=== PATIENT | male | born 1940 | race Caucasian/White ===

== ENCOUNTER 2019-10-12 00:46 | Emergency (ER) | payer MEDICARE ==
--- NOTE | 2019-10-12 01:21 | EDM.PDOC ---
ED HPI GENERAL MEDICAL PROBLEM - General Chief Complaint: Genitourinary Problem Stated Complaint: CATHETER ISSUES Time Seen by Provider: 10/12/19 01:00 Source of Information: Reports: Patient History Limitations: Reports: No Limitations - History of Present Illness INITIAL COMMENTS - FREE TEXT/NARRATIVE: 79-year-old male with an indwelling catheter which was replaced Monday, developed likely obstruction with some drainage around the catheter from the penis and a pressure in his lower abdomen. No hematuria, no fevers or chills. Onset: Gradual (Symptoms over the past several hours) - Related Data Allergies Allergy/AdvReac Type Severity Reaction Status Date / Time No Known Allergies Allergy Verified 10/12/19 01:04 Home Meds: Home Meds Aspirin [Natalie Chewable Aspirin] 81 mg PO DAILY 12/12/13 [History] atorvaSTATin [Lipitor] 80 mg PO BEDTIME 08/19/14 [History] Acetaminophen [Tylenol Extra Strength] 1 tab PO QID PRN 12/20/15 [History] Nitroglycerin [IJP: Nitroglycerin] 1 tab SL ASDIRECTED 12/20/15 [History] Polyethylene Glycol 3350 [MiraLAX] 1 dose PO DAILY 12/20/15 [History] Sennosides/Docusate Sodium [Senna-S] 1 tab PO BEDTIME 12/20/15 [History] Metoprolol Succinate [Toprol Xl] 25 mg PO DAILY 10/12/19 [History] Mirtazapine 15 mg PO BEDTIME 10/12/19 [History] Oxybutynin Chloride [Oxybutynin Chloride ER] 10 mg PO DAILY 10/12/19 [History] Past Medical History HEENT History: Reports: Cataract, Impaired Vision Cardiovascular History: Reports: CAD, Heart Failure, High Cholesterol, Hypertension, [place] Other Cardiovascular History: open heart surgery 7 years ago. Ischemic heart disease, hyperlipidemia Gastrointestinal History: Reports: Chronic Constipation Genitourinary History: Reports: Renal Calculus, Urinary Incontinence, Other ( See Below) Other Genitourinary History: decreased urine stream Musculoskeletal History: Reports: Other (See Below) Other Musculoskeletal History: neuropathy Neurological History: Reports: Neuropathy, Peripheral Psychiatric History: Reports: Anxiety - Infectious Disease History Infectious Disease History: Reports: Chicken Pox - Past Surgical History HEENT Surgical History: Reports: Cataract Surgery, Tonsillectomy Cardiovascular Surgical History: Reports: Coronary Artery Bypass Male Surgical History: Reports: Kidney Stone Extraction, Lithotripsy (ESWL), Renal Calculus Social & Family History - Caffeine Use Caffeine Use: Reports: Coffee ED ROS GENERAL - Review of Systems Review Of Systems: See Below Constitutional: Denies: Fever, Chills Respiratory: Denies: Shortness of Breath Cardiovascular: Denies: Chest Pain GI/Abdominal: Reports: Abdominal Pain. Denies: Nausea, Vomiting : Reports: Urinary Retention Musculoskeletal: Reports: Other (Struggling with pain around his right large toenail with mild inflammation) ED EXAM, RENAL/ - Physical Exam Exam: See Below Exam Limited By: No Limitations General Appearance: Alert, Anxious, Mild Distress Respiratory/Chest: No Respiratory Distress GI/Abdominal: Soft, Tender (Discomfort over the lower abdomen, likely bladder distention) Skin Exam: Other (Some mild inflammation around the medial aspect of the great toenail from an in grown toenail, no significant erythema or warmth) Course - Vital Signs Last Recorded V/S: Last Vital Signs Temp 97.6 F 10/12/19 01:32 Pulse 86 10/12/19 01:32 Resp 14 10/12/19 01:32 BP 164/77 H 10/12/19 01:32 Pulse Ox 98 10/12/19 01:32 - Re-Assessments/Exams Free Text/Narrative Re-Assessment/Exam: 10/12/19 01:19 The catheter was irrigated and a fairly significant sized chunk of particulate matter was dislodged and the catheter started functioning. Almost 500 cc of clear urine was expelled. His symptoms resolved. Departure - Departure Time of Disposition: 01:43 Disposition: Home, Self-Care 01 Clinical Impression: Obstructed Medeiros catheter Qualifiers: Encounter type: initial encounter Qualified Code(s): T83.091A - Other mechanical complication of indwelling urethral catheter, initial encounter - Discharge Information Instructions: Indwelling Urinary Catheter Care, Adult Referrals: Klarissa Yadav MD [Primary Care Provider] - Forms: ED Department Discharge Care Plan Goals: Continue using catheter as normal, return anytime if problems redevelop. Recheck if your toe is worsening. Sepsis Event Note - Focused Exam Vital Signs: Vital Signs Temp Pulse Resp BP Pulse Ox 10/12/19 01:32 97.6 F 86 14 164/77 H 98 Date Exam was Performed: 10/12/19 Time Exam was Performed: 02:27
[2019-10-12 01:35] VITALS: BP 164/77; PULSE 86
== END 2019-10-12 01:45 | disposition home or self-care (01) ==
LOC: JP.ED 00:46
DX: T83.098A Other mechanical complication of other urinary catheter, initial encounter (principal); I11.0 Hypertensive heart disease with heart failure; I50.9 Heart failure, unspecified; I25.10 Atherosclerotic heart disease of native coronary artery without angina pectoris; E78.5 Hyperlipidemia, unspecified; F41.9 Anxiety disorder, unspecified; I25.2 Old myocardial infarction; Z79.82 Long term (current) use of aspirin; Z79.899 Other long term (current) drug therapy; Z87.442 Personal history of urinary calculi
CPT/HCPCS: 51798; 99283; 99283-25

== ENCOUNTER 2019-10-22 00:15 | Emergency (ER) | payer MEDICARE ==
[2019-10-22 00:30] VITALS: BP 143/79; PULSE 78
--- NOTE | 2019-10-22 00:45 | EDM.PDOC ---
ED HPI GENERAL MEDICAL PROBLEM - General Chief Complaint: Genitourinary Problem Stated Complaint: CATH ISSUES Time Seen by Provider: 10/22/19 00:30 Source of Information: Reports: Patient, Family History Limitations: Reports: No Limitations - History of Present Illness INITIAL COMMENTS - FREE TEXT/NARRATIVE: 79-year-old male with an indwelling catheter, is having problems with obstruction of the catheter in his urine leg is turning a purplish color. He has no pain, fever or dysuria. Denies back pain. No fevers or chills. Onset: Unknown/Unsure Location: Reports: Abdomen (Some pressure and fullness in the lower abdomen) - Related Data Allergies Allergy/AdvReac Type Severity Reaction Status Date / Time No Known Allergies Allergy Verified 10/22/19 00:19 Home Meds: Home Meds Aspirin [Natalie Chewable Aspirin] 81 mg PO DAILY 12/12/13 [History] atorvaSTATin [Lipitor] 80 mg PO BEDTIME 08/19/14 [History] Acetaminophen [Tylenol Extra Strength] 1 tab PO QID PRN 12/20/15 [History] Nitroglycerin [IJP: Nitroglycerin] 1 tab SL ASDIRECTED 12/20/15 [History] Polyethylene Glycol 3350 [MiraLAX] 1 dose PO DAILY 12/20/15 [History] Sennosides/Docusate Sodium [Senna-S] 1 tab PO BEDTIME 12/20/15 [History] Metoprolol Succinate [Toprol Xl] 25 mg PO DAILY 10/12/19 [History] Mirtazapine 15 mg PO BEDTIME 10/12/19 [History] Oxybutynin Chloride [Oxybutynin Chloride ER] 10 mg PO DAILY 10/12/19 [History] Past Medical History HEENT History: Reports: Cataract, Impaired Vision Cardiovascular History: Reports: CAD, Heart Failure, High Cholesterol, Hypertension, [place] Other Cardiovascular History: open heart surgery 7 years ago. Ischemic heart disease, hyperlipidemia Gastrointestinal History: Reports: Chronic Constipation Genitourinary History: Reports: Renal Calculus, Urinary Incontinence, Other ( See Below) Other Genitourinary History: decreased urine stream, chronic urinary catheter Musculoskeletal History: Reports: Other (See Below) Other Musculoskeletal History: neuropathy Neurological History: Reports: Neuropathy, Peripheral Psychiatric History: Reports: Anxiety - Infectious Disease History Infectious Disease History: Reports: Chicken Pox - Past Surgical History HEENT Surgical History: Reports: Cataract Surgery, Tonsillectomy Cardiovascular Surgical History: Reports: Coronary Artery Bypass Male Surgical History: Reports: Kidney Stone Extraction, Lithotripsy (ESWL), Renal Calculus Social & Family History - Tobacco Use Smoking Status *Q: Never Smoker - Caffeine Use Caffeine Use: Reports: Coffee - Recreational Drug Use Recreational Drug Use: No ED ROS GENERAL - Review of Systems Review Of Systems: See Below Constitutional: Denies: Fever, Chills Respiratory: Reports: No Symptoms GI/Abdominal: Reports: Abdominal Pain : Reports: Urinary Retention Neurological: Reports: No Symptoms Psychiatric: Reports: No Symptoms ED EXAM, RENAL/ - Physical Exam Exam: See Below Exam Limited By: No Limitations General Appearance: Alert, No Apparent Distress (Looks uncomfortable but not distressed initially) Respiratory/Chest: No Respiratory Distress, Lungs Clear Cardiovascular: Regular Rate, Rhythm GI/Abdominal: Other (Some fullness and soreness over the suprapubic area prior to drainage of the bladder) Neurological: Alert, Oriented Psychiatric: Anxious Skin Exam: Warm, Dry Course - Vital Signs Last Recorded V/S: Last Vital Signs Temp 97.8 F 10/22/19 00:30 Pulse 78 10/22/19 00:30 Resp 16 10/22/19 00:30 BP 143/79 H 10/22/19 00:30 Pulse Ox 98 10/22/19 00:30 - Orders/Labs/Meds Orders: Active Orders 24 hr Category Date Time Status CULTURE URINE [RM] Stat Lab 10/22/19 00:36 Received Labs: Laboratory Tests 10/22/19 Range/Units 00:36 Urine Color Yellow (YELLOW) Urine Appearance Cloudy A (CLEAR) Urine pH 7.0 (5.0-8.0) Ur Specific [place] 1.020 (1.008-1.030) Urine Protein Negative (NEGATIVE) mg/dL Urine Glucose (UA) Negative (NEGATIVE) mg/dL Urine Ketones Negative (NEGATIVE) mg/dL Urine Occult Blood Large H (NEGATIVE) Urine Nitrite Positive H (NEGATIVE) Urine Bilirubin Negative (NEGATIVE) Urine Urobilinogen 0.2 (0.2-1.0) EU/dL Ur Leukocyte Esterase Moderate H (NEGATIVE) Urine RBC 20-30 H (0-5) Urine WBC 5-10 H (0-5) Ur Epithelial Cells Rare Amorphous Sediment Many Urine Bacteria Many Urine Mucus Not seen - Re-Assessments/Exams Free Text/Narrative Re-Assessment/Exam: 10/22/19 01:03 The urinary catheter was flushed and a large plug of purulent material was expelled and the urine was very odorous and full of sediment. A UA was run which was positive for UTI. 10/22/19 01:04 Urine is nitrate positive, many bacteria and significant WBCs. A culture was initiated. Patient will be placed on Macrodantin twice daily for 7 days pending culture. Departure - Departure Time of Disposition: :21 Disposition: Home, Self-Care 01 Clinical Impression: UTI (urinary tract infection) Qualifiers: Urinary tract infection type: catheter-associated UTI Indwelling urinary catheter type: indwelling urethral catheter Encounter type: initial encounter Qualified Code(s): T83.511A - Infection and inflammatory reaction due to indwelling urethral catheter, initial encounter Malfunction of Medeiros catheter Qualifiers: Encounter type: initial encounter Qualified Code(s): T83.011A - Breakdown ( mechanical) of indwelling urethral catheter, initial encounter - Discharge Information Instructions: Urinary Tract Infection, Adult Referrals: PCP,None [Primary Care Provider] - Forms: ED Department Discharge Care Plan Goals: Take antibiotic twice daily for 7 days and return anytime if you redevelop symptoms or have trouble with the catheter. You will be contacted if your urine culture shows you need another antibiotic. Return anytime if worsening despite treatment. Sepsis Event Note - Evaluation Sepsis Screening Result: No Definite Risk - Focused Exam Vital Signs: Vital Signs Temp Pulse Resp BP Pulse Ox 10/22/19 00:30 97.8 F 78 16 143/79 H 98 10/22/19 00:28 97.8 F 78 16 143/79 H 98 Date Exam was Performed: 10/22/19 Time Exam was Performed: 01:58 - My Orders Last 24 Hours: My Active Orders 10/22/19 00:36 CULTURE URINE [RM] Stat - Assessment/Plan Last 24 Hours: My Active Orders 10/22/19 00:36 CULTURE URINE [RM] Stat
== END 2019-10-22 01:21 | disposition home or self-care (01) ==
LOC: JP.ED 00:15
DX: T83.518A Infection and inflammatory reaction due to other urinary catheter, initial encounter (principal); T83.9XXA Unspecified complication of genitourinary prosthetic device, implant and graft, initial encounter; I25.10 Atherosclerotic heart disease of native coronary artery without angina pectoris; I11.0 Hypertensive heart disease with heart failure; I50.9 Heart failure, unspecified; I25.2 Old myocardial infarction; G62.9 Polyneuropathy, unspecified; F41.9 Anxiety disorder, unspecified; Z79.82 Long term (current) use of aspirin; Z79.899 Other long term (current) drug therapy
CPT/HCPCS: 81001; 87086; 99283

== ENCOUNTER 2019-12-01 18:42 | Emergency (ER) | payer MEDICARE ==
[2019-12-01] MEDS ORDERED: Lidocaine 2% Jelly 10 ML Urojet MUCMEM ONE (18:58)
[2019-12-01 19:01] VITALS: BP 162/71; PULSE 70
--- NOTE | 2019-12-01 19:31 | EDM.PDOC ---
ED HPI GENERAL MEDICAL PROBLEM - General Chief Complaint: Genitourinary Problem Stated Complaint: CATHETER/MEDICAL Time Seen by Provider: 12/01/19 19:20 Source of Information: Reports: Patient, Family () History Limitations: Reports: Other (hard of hearing) - History of Present Illness INITIAL COMMENTS - FREE TEXT/NARRATIVE: 79 year old male with chronic indwelling urinary catheter which was scheduled to be changed on Monday but supplies needed. Home Health was planning to change the catheter early this week, including leg and bed bag change. Patient had abrupt onset of urinary retention due to plugged catheter around 2pm this afternoon which caused lower abdominal discomfort and pressure with leakage around catheter. Patient denies any systemic symptoms that would be concerning for UTI. Patient's leg bag is a purple color indicating bacteria or blood present. Urine appears bloody and strong odor noted. - Related Data Allergies Allergy/AdvReac Type Severity Reaction Status Date / Time No Known Allergies Allergy Verified 12/01/19 19:31 Home Meds: Home Meds Aspirin [Ntaalie Chewable Aspirin] 81 mg PO DAILY 12/12/13 [History] atorvaSTATin [Lipitor] 80 mg PO BEDTIME 08/19/14 [History] Acetaminophen [Tylenol Extra Strength] 1 tab PO QID PRN 12/20/15 [History] Nitroglycerin [IJP: Nitroglycerin] 1 tab SL ASDIRECTED PRN 12/20/15 [History] Polyethylene Glycol 3350 [MiraLAX] 1 dose PO DAILY 12/20/15 [History] Sennosides/Docusate Sodium [Senna-S] 1 tab PO BEDTIME 12/20/15 [History] Metoprolol Succinate [Toprol Xl] 25 mg PO DAILY 10/12/19 [History] Mirtazapine 15 mg PO BEDTIME 10/12/19 [History] Oxybutynin Chloride [Oxybutynin Chloride ER] 10 mg PO DAILY 10/12/19 [History] Past Medical History HEENT History: Reports: Cataract, Impaired Vision Cardiovascular History: Reports: CAD, Heart Failure, High Cholesterol, Hypertension, [place] Other Cardiovascular History: open heart surgery 7 years ago. Ischemic heart disease, hyperlipidemia Gastrointestinal History: Reports: Chronic Constipation Genitourinary History: Reports: Renal Calculus, Urinary Incontinence, Other (See Below) Other Genitourinary History: decreased urine stream, chronic urinary catheter Musculoskeletal History: Reports: Other (See Below) Other Musculoskeletal History: neuropathy Neurological History: Reports: Neuropathy, Peripheral Psychiatric History: Reports: Anxiety - Infectious Disease History Infectious Disease History: Reports: Chicken Pox - Past Surgical History HEENT Surgical History: Reports: Cataract Surgery, Tonsillectomy Cardiovascular Surgical History: Reports: Coronary Artery Bypass Male Surgical History: Reports: Kidney Stone Extraction, Lithotripsy (ESWL), Renal Calculus Social & Family History - Caffeine Use Caffeine Use: Reports: Coffee ED ROS GENERAL - Review of Systems Review Of Systems: Comprehensive ROS is negative, except as noted in HPI. ED EXAM, RENAL/ - Physical Exam Exam: See Below Exam Limited By: Other (Hard of Hearing) General Appearance: Alert, WD/WN, Mild Distress (suprapubic/bladder discomfort) Eye Exam: Bilateral Eye: EOMI, Normal Inspection Ears: Normal External Exam, Hearing Loss Nose: Normal Inspection Throat/Mouth: Normal Inspection, Normal Voice, No Airway Compromise Head: Atraumatic Neck: Normal Inspection Respiratory/Chest: No Respiratory Distress Cardiovascular: Normal Peripheral Pulses, Other (good color) GI/Abdominal: Soft, Distended (slightly over bladder), Tender (suprapubic discomfort noted). No: Guarding, Rigid (Male) Exam: Suprapubic Fullness, Testicular Mass, Testicular Tenderness (L), Other (retracted phalus noted with blood urine after removal of current urinary catheter). No: Circumcised, Rash, Scrotal Swelling Rectal (Males) Exam: Deferred Neurological: Alert, Oriented, CN II-XII Intact, Normal Cognition. No: Normal Gait (4 point cane use) Psychiatric: Normal Affect, Normal Mood Skin Exam: Warm, Dry, Intact, Normal Color, No Rash ED PROCEDURES - Additional/Other Procedure(s) Procedure(s) (Free Text): Current urinary catheter removed by nursing staff and replace with urojet for discomfort. Patient tolerated well. Please see nursing note for catheter type and size placed. New urinary catheter draining yellow slightly concentrated urine with minimal sediment noted. Course - Vital Signs Last Recorded V/S: Last Vital Signs Temp 35.0 C L 12/01/19 19:33 Pulse 70 12/01/19 19:33 Resp 16 12/01/19 19:33 BP 162/71 H 12/01/19 19:33 Pulse Ox 97 12/01/19 19:33 - Orders/Labs/Meds Orders: Active Orders 24 hr Category Date Time Status Bladder Scan [RC] ASDIRECTED Care 12/01/19 18:58 Active Insert Urinary Catheter [OM.PC] Q24H Care 12/01/19 19:00 Ordered Remove Urinary Catheter [Urinary Catheter Removal] [RC] Care 12/01/19 18:59 Active PER UNIT ROUTINE Urinary Catheter Assessment [RC] ASDIRECTED Care 12/01/19 18:59 Active Meds: Medications Discontinued Medications Generic Name Dose Route Start Last Admin Trade Name [place] PRN Reason Stop Dose Admin Lidocaine HCl 10 ml 12/01/19 18:58 Xylocaine 2% Jelly MUCMEM 12/01/19 18:59 ONETIME ONE Departure - Departure Time of Disposition: 19:45 Disposition: Home, Self-Care 01 Clinical Impression: Urinary catheter dysfunction, Urinary catheter (Medeiros) change required, Colonization status - Discharge Information Instructions: Indwelling Urinary Catheter Care, Adult Referrals: Klarissa Yadav MD [Primary Care Provider] - Forms: ED Department Discharge Sepsis Event Note (ED) - Focused Exam Vital Signs: Vital Signs Temp Pulse Resp BP Pulse Ox 12/01/19 19:33 35.0 C L 70 16 162/71 H 97 12/01/19 19:00 35.0 C L 70 16 162/71 H 97 - My Orders Last 24 Hours: My Active Orders 12/01/19 18:58 Bladder Scan [RC] ASDIRECTED 12/01/19 18:59 Remove Urinary Catheter [Urinary Catheter Removal] [RC] PER UNIT ROUTINE Urinary Catheter Assessment [RC] ASDIRECTED 12/01/19 19:00 Insert Urinary Catheter [OM.PC] Q24H - Assessment/Plan Last 24 Hours: My Active Orders 12/01/19 18:58 Bladder Scan [RC] ASDIRECTED 12/01/19 18:59 Remove Urinary Catheter [Urinary Catheter Removal] [RC] PER UNIT ROUTINE Urinary Catheter Assessment [RC] ASDIRECTED 12/01/19 19:00 Insert Urinary Catheter [OM.PC] Q24H
== END 2019-12-01 19:58 | disposition home or self-care (01) ==
LOC: JP.ED 18:42
DX: T83.89XA Other specified complication of genitourinary prosthetic devices, implants and grafts, initial encounter (principal); I11.0 Hypertensive heart disease with heart failure; I50.9 Heart failure, unspecified; I25.10 Atherosclerotic heart disease of native coronary artery without angina pectoris; I25.2 Old myocardial infarction; E78.00 Pure hypercholesterolemia, unspecified; F41.9 Anxiety disorder, unspecified; Z79.82 Long term (current) use of aspirin; Z79.899 Other long term (current) drug therapy
CPT/HCPCS: 51702; 99283

== ENCOUNTER 2019-12-18 20:19 | Emergency (ER) | payer MEDICARE ==
[2019-12-18 20:34] VITALS: BP 144/79; PULSE 58
--- NOTE | 2019-12-18 20:51 | EDM.PDOC ---
ED HPI GENERAL MEDICAL PROBLEM - General Chief Complaint: Genitourinary Problem Stated Complaint: CATHETER PLUG Time Seen by Provider: 12/18/19 20:45 Source of Information: Reports: Patient, Family History Limitations: Reports: No Limitations - History of Present Illness INITIAL COMMENTS - FREE TEXT/NARRATIVE: 79-year-old male with a chronic indwelling Medeiros catheter, feels it is plugged as he is leaking urine around the catheter and the bag is not filling. He is not distended and not retaining urine. They have had to flush the catheter several times over the past week and it keeps getting plugged. He does not have hematuria or blood clots. Onset: Unknown/Unsure Associated Symptoms: Reports: No Other Symptoms - Related Data Allergies Allergy/AdvReac Type Severity Reaction Status Date / Time No Known Allergies Allergy Verified 12/18/19 20:34 Home Meds: Home Meds Aspirin [Natalie Chewable Aspirin] 81 mg PO DAILY 12/12/13 [History] atorvaSTATin [Lipitor] 80 mg PO BEDTIME 08/19/14 [History] Acetaminophen [Tylenol Extra Strength] 1 tab PO QID PRN 12/20/15 [History] Nitroglycerin [IJP: Nitroglycerin] 1 tab SL ASDIRECTED PRN 12/20/15 [History] Polyethylene Glycol 3350 [MiraLAX] 1 dose PO DAILY 12/20/15 [History] Sennosides/Docusate Sodium [Senna-S] 1 tab PO BEDTIME 12/20/15 [History] Metoprolol Succinate [Toprol Xl] 25 mg PO DAILY 10/12/19 [History] Mirtazapine 15 mg PO BEDTIME 10/12/19 [History] Oxybutynin Chloride [Oxybutynin Chloride ER] 10 mg PO DAILY 10/12/19 [History] Past Medical History HEENT History: Reports: Cataract, Impaired Vision Cardiovascular History: Reports: CAD, Heart Failure, High Cholesterol, Hypertension, [place] Other Cardiovascular History: open heart surgery 7 years ago. Ischemic heart disease, hyperlipidemia Gastrointestinal History: Reports: Chronic Constipation Genitourinary History: Reports: Renal Calculus, Urinary Incontinence, Other (See Below) Other Genitourinary History: decreased urine stream, chronic urinary catheter Musculoskeletal History: Reports: Other (See Below) Other Musculoskeletal History: neuropathy Neurological History: Reports: Neuropathy, Peripheral Psychiatric History: Reports: Anxiety - Infectious Disease History Infectious Disease History: Reports: Chicken Pox - Past Surgical History HEENT Surgical History: Reports: Cataract Surgery, Tonsillectomy Cardiovascular Surgical History: Reports: Coronary Artery Bypass Male Surgical History: Reports: Kidney Stone Extraction, Lithotripsy (ESWL), Renal Calculus Social & Family History - Family History Family Medical History: Noncontributory - Tobacco Use Smoking Status *Q: Never Smoker - Caffeine Use Caffeine Use: Reports: None - Recreational Drug Use Recreational Drug Use: No ED ROS GENERAL - Review of Systems Review Of Systems: See Below Constitutional: Denies: Fever, Chills Respiratory: Denies: Shortness of Breath Cardiovascular: Denies: Chest Pain GI/Abdominal: Denies: Abdominal Pain Psychiatric: Reports: No Symptoms ED EXAM, RENAL/ - Physical Exam Exam: See Below General Appearance: Alert, No Apparent Distress Respiratory/Chest: No Respiratory Distress GI/Abdominal: Soft, Non-Tender, Other (No significant bladder distention or suprapubic discomfort) Course - Vital Signs Last Recorded V/S: Last Vital Signs Temp 96.9 F 12/18/19 20:39 Pulse 58 L 12/18/19 20:39 Resp 16 12/18/19 20:39 BP 144/79 H 12/18/19 20:39 Pulse Ox 94 L 12/18/19 20:39 - Re-Assessments/Exams Free Text/Narrative Re-Assessment/Exam: 12/18/19 21:23 There was an attempt to unobstruct the old catheter but it was impossible, a new catheter, 16 [place] was replaced without problems. It flowed freely without obstruction. Patient can return or call his primary if he has problems with his new catheter. Departure - Departure Time of Disposition: 21:42 Disposition: Home, Self-Care 01 Clinical Impression: Malfunction of Medeiros catheter - Discharge Information Instructions: Indwelling Urinary Catheter Care, Adult Referrals: Klarissa Yadav MD [Primary Care Provider] - Forms: ED Department Discharge Care Plan Goals: Recheck anytime if problems with your new catheter. Sepsis Event Note (ED) - Evaluation Sepsis Screening Result: No Definite Risk - Focused Exam Vital Signs: Vital Signs Temp Pulse Resp BP Pulse Ox 12/18/19 20:39 96.9 F 58 L 16 144/79 H 94 L 12/18/19 20:32 96.9 F 58 L 16 144/79 H 94 L
== END 2019-12-18 21:43 | disposition home or self-care (01) ==
LOC: JP.ED 20:19
DX: T83.098A Other mechanical complication of other urinary catheter, initial encounter (principal); I25.10 Atherosclerotic heart disease of native coronary artery without angina pectoris; I11.0 Hypertensive heart disease with heart failure; I50.9 Heart failure, unspecified; E78.00 Pure hypercholesterolemia, unspecified; I25.2 Old myocardial infarction; G62.9 Polyneuropathy, unspecified; F41.9 Anxiety disorder, unspecified; Z79.82 Long term (current) use of aspirin; Z79.899 Other long term (current) drug therapy
CPT/HCPCS: 51702; 99282; 99283

== ENCOUNTER 2020-01-05 12:53 | Emergency (ER) | payer MEDICARE ==
--- NOTE | 2020-01-05 13:01 | EDM.PDOC ---
ED HPI GENERAL MEDICAL PROBLEM - General Chief Complaint: Genitourinary Problem Stated Complaint: PROBLEMS WITH CATH Time Seen by Provider: 01/05/20 13:00 Source of Information: Reports: Patient, Old Records, RN History Limitations: Reports: No Limitations - History of Present Illness INITIAL COMMENTS - FREE TEXT/NARRATIVE: 79 yo male here with a plugged rodríguez catheter. Was placed about 2 weeks ago. No fever or chills. Onset: Today Onset Date: 01/05/20 Duration: Hour(s): Location: Reports: Pelvis (rodríguez cath) Quality: Reports: Pressure (bladder) Severity: Moderate Improves with: Reports: None Worsens with: Reports: Other (time) Context: Reports: Other (See HPI) Associated Symptoms: Reports: Other (urine leakage around catheter) Treatments SENIOR OPERATIONS MANAGER: Reports: Other (see below) (none) - Related Data Allergies Allergy/AdvReac Type Severity Reaction Status Date / Time No Known Allergies Allergy Verified 01/05/20 13:16 Home Meds: Home Meds Aspirin [Natalie Chewable Aspirin] 81 mg PO DAILY 12/12/13 [History] atorvaSTATin [Lipitor] 80 mg PO BEDTIME 08/19/14 [History] Acetaminophen [Tylenol Extra Strength] 1 tab PO QID PRN 12/20/15 [History] Nitroglycerin [IJP: Nitroglycerin] 1 tab SL ASDIRECTED PRN 12/20/15 [History] Polyethylene Glycol 3350 [MiraLAX] 1 dose PO DAILY 12/20/15 [History] Sennosides/Docusate Sodium [Senna-S] 1 tab PO BEDTIME 12/20/15 [History] Metoprolol Succinate [Toprol Xl] 25 mg PO DAILY 10/12/19 [History] Mirtazapine 15 mg PO BEDTIME 10/12/19 [History] Oxybutynin Chloride [Oxybutynin Chloride ER] 10 mg PO DAILY 10/12/19 [History] cephALEXin [Cephalexin] 500 mg PO Q8H #15 tablet 01/05/20 [Rx] Past Medical History HEENT History: Reports: Cataract, Impaired Vision Cardiovascular History: Reports: CAD, Heart Failure, High Cholesterol, Hypertension, [place] Other Cardiovascular History: open heart surgery 7 years ago. Ischemic heart disease, hyperlipidemia Gastrointestinal History: Reports: Chronic Constipation Genitourinary History: Reports: Renal Calculus, Urinary Incontinence, Other (See Below) Other Genitourinary History: decreased urine stream, chronic urinary catheter Musculoskeletal History: Reports: Other (See Below) Other Musculoskeletal History: neuropathy Neurological History: Reports: Neuropathy, Peripheral Psychiatric History: Reports: Anxiety - Infectious Disease History Infectious Disease History: Reports: Chicken Pox - Past Surgical History HEENT Surgical History: Reports: Cataract Surgery, Tonsillectomy Cardiovascular Surgical History: Reports: Coronary Artery Bypass Male Surgical History: Reports: Kidney Stone Extraction, Lithotripsy (ESWL), Renal Calculus Social & Family History - Family History Family Medical History: Noncontributory - Caffeine Use Caffeine Use: Reports: None ED ROS GENERAL - Review of Systems Review Of Systems: See Below Constitutional: Reports: No Symptoms HEENT: Reports: No Symptoms Respiratory: Reports: No Symptoms Cardiovascular: Reports: No Symptoms GI/Abdominal: Reports: No Symptoms : Reports: Other (urine leakage, bladder pressure, catheter not functioning) Skin: Reports: No Symptoms ED EXAM, RENAL/ - Physical Exam Exam: See Below Exam Limited By: No Limitations General Appearance: Alert, WD/WN, No Apparent Distress (Male) Exam: Suprapubic Fullness, Other (Bladder distention) ED PROCEDURES - Additional/Other Procedure(s) Procedure(s) (Free Text): Rodríguez catheter change per RN Course - Orders/Labs/Meds Orders: Active Orders 24 hr Category Date Time Status Rodríguez Catheter Insertion [Insert Urinary Catheter] [OM. Care 01/05/20 13:00 Ordered PC] Q24H Urinary Catheter Assessment [RC] ASDIRECTED Care 01/05/20 12:58 Active CULTURE URINE [RM] Stat Lab 01/05/20 13:30 Ordered Labs: Laboratory Tests 01/05/20 Range/Units 13:14 Urine Color Yellow (YELLOW) Urine Appearance Clear (CLEAR) Urine pH 7.0 (5.0-8.0) Ur Specific [place] 1.020 (1.008-1.030) Urine Protein Trace H (NEGATIVE) mg/dL Urine Glucose (UA) Negative (NEGATIVE) mg/dL Urine Ketones Negative (NEGATIVE) mg/dL Urine Occult Blood Large H (NEGATIVE) Urine Nitrite Positive H (NEGATIVE) Urine Bilirubin Negative (NEGATIVE) Urine Urobilinogen 0.2 (0.2-1.0) EU/dL Ur Leukocyte Esterase Large H (NEGATIVE) Urine RBC 20-30 H (0-5) Urine WBC >100 H (0-5) Urine Bacteria Many Departure - Departure Time of Disposition: 13:35 Disposition: Home, Self-Care 01 Condition: Fair Clinical Impression: Obstructed Rodríguez catheter Qualifiers: Encounter type: initial encounter Qualified Code(s): T83.091A - Other mechan ical complication of indwelling urethral catheter, initial encounter UTI (urinary tract infection) Qualifiers: Urinary tract infection type: acute cystitis Hematuria presence: without hematuria Qualified Code(s): N30.00 - Acute cystitis without hematuria - Discharge Information *PRESCRIPTION DRUG MONITORING PROGRAM REVIEWED*: No *COPY OF PRESCRIPTION DRUG MONITORING REPORT IN PATIENT POP: No Prescriptions: cephALEXin [Cephalexin] 500 mg PO Q8H #15 tablet Referrals: Klarissa Yadav MD [Primary Care Provider] - Forms: ED Department Discharge Additional Instructions: Take cephalexin every 8 hrs. Recheck with your doctor in 3 days to review your urine culture results. Return as needed. - My Orders Last 24 Hours: My Active Orders 01/05/20 12:58 Urinary Catheter Assessment [RC] ASDIRECTED 01/05/20 13:00 Rodríguez Catheter Insertion [Insert Urinary Catheter] [OM.PC] Q24H 01/05/20 13:30 CULTURE URINE [RM] Stat - Assessment/Plan Last 24 Hours: My Active Orders 01/05/20 12:58 Urinary Catheter Assessment [RC] ASDIRECTED 01/05/20 13:00 Rodríguez Catheter Insertion [Insert Urinary Catheter] [OM.PC] Q24H 01/05/20 13:30 CULTURE URINE [RM] Stat
[2020-01-05 13:44] VITALS: BP 112/73; PULSE 64
== END 2020-01-05 13:55 | disposition home or self-care (01) ==
LOC: JP.ED 12:53
DX: T83.098A Other mechanical complication of other urinary catheter, initial encounter (principal); N30.00 Acute cystitis without hematuria; I11.0 Hypertensive heart disease with heart failure; I50.9 Heart failure, unspecified; I25.10 Atherosclerotic heart disease of native coronary artery without angina pectoris; E78.00 Pure hypercholesterolemia, unspecified; I25.2 Old myocardial infarction; Z95.1 Presence of aortocoronary bypass graft; Z79.82 Long term (current) use of aspirin; Z79.899 Other long term (current) drug therapy
CPT/HCPCS: 51702; 81001; 87086; 87088; 87186; 99283-25

== ENCOUNTER 2020-03-22 23:06 | Emergency (ER) | payer MEDICARE ==
[2020-03-22 23:46] VITALS: BP 164/92; PULSE 81
--- NOTE | 2020-03-22 23:51 | EDM.PDOC ---
ED HPI GENERAL MEDICAL PROBLEM - General Chief Complaint: Genitourinary Problem Stated Complaint: CATHETER PLUGGED Time Seen by Provider: 03/22/20 23:35 Source of Information: Reports: Patient History Limitations: Reports: No Limitations - History of Present Illness INITIAL COMMENTS - FREE TEXT/NARRATIVE: 79-year-old male who has a chronic indwelling catheter presents with a plugged catheter for the last several hours. Mild to moderate discomfort of his lower abdomen but urine is escaping around the catheter. This has happened to him several times in the past and usually needs a replacement catheter. No fevers or chills. He has had the current catheter for the last 2 months. Onset: Sudden (He thinks it started to malfunction rather suddenly 8 to 10 hours ago) Associated Symptoms: Reports: Other (Mild lower abdominal discomfort) - Related Data Allergies Allergy/AdvReac Type Severity Reaction Status Date / Time No Known Allergies Allergy Verified 03/22/20 23:38 Home Meds: Home Meds Aspirin [Natalie Chewable Aspirin] 81 mg PO DAILY 12/12/13 [History] atorvaSTATin [Lipitor] 80 mg PO BEDTIME 08/19/14 [History] Acetaminophen [Tylenol Extra Strength] 1 tab PO QID PRN 12/20/15 [History] Nitroglycerin [IJP: Nitroglycerin] 1 tab SL ASDIRECTED PRN 12/20/15 [History] Polyethylene Glycol 3350 [MiraLAX] 1 dose PO DAILY 12/20/15 [History] Sennosides/Docusate Sodium [Senna-S] 1 tab PO BEDTIME 12/20/15 [History] Metoprolol Succinate [Toprol Xl] 25 mg PO DAILY 10/12/19 [History] Mirtazapine 15 mg PO BEDTIME 10/12/19 [History] Oxybutynin Chloride [Oxybutynin Chloride ER] 10 mg PO DAILY 10/12/19 [History] cephALEXin [Cephalexin] 500 mg PO Q8H #15 tablet 01/05/20 [Rx] Past Medical History HEENT History: Reports: Cataract, Impaired Vision Cardiovascular History: Reports: CAD, Heart Failure, High Cholesterol, Hypertension, [place] Other Cardiovascular History: open heart surgery 7 years ago. Ischemic heart disease, hyperlipidemia Gastrointestinal History: Reports: Chronic Constipation Genitourinary History: Reports: Renal Calculus, Urinary Incontinence, Other (See Below) Other Genitourinary History: decreased urine stream, chronic urinary catheter Musculoskeletal History: Reports: Other (See Below) Other Musculoskeletal History: neuropathy Neurological History: Reports: Neuropathy, Peripheral Psychiatric History: Reports: Anxiety - Infectious Disease History Infectious Disease History: Reports: Chicken Pox - Past Surgical History HEENT Surgical History: Reports: Cataract Surgery, Tonsillectomy Cardiovascular Surgical History: Reports: Coronary Artery Bypass Male Surgical History: Reports: Kidney Stone Extraction, Lithotripsy (ESWL), Renal Calculus Social & Family History - Family History Family Medical History: Noncontributory - Tobacco Use Smoking Status *Q: Unknown Ever Smoked - Caffeine Use Caffeine Use: Reports: None ED ROS GENERAL - Review of Systems Review Of Systems: See Below Constitutional: Denies: Fever, Chills Respiratory: Denies: Shortness of Breath GI/Abdominal: Reports: Abdominal Pain. Denies: Nausea, Vomiting ED EXAM, RENAL/ - Physical Exam Exam: See Below Exam Limited By: No Limitations General Appearance: Alert, No Apparent Distress Respiratory/Chest: No Respiratory Distress GI/Abdominal: Other (Mild tenderness to palpation over the suprapubic area and left lower quadrant, no significant distention) Neurological: Alert, Oriented Psychiatric: Normal Affect, Normal Mood Course - Vital Signs Last Recorded V/S: Last Vital Signs Temp 97.0 F 03/22/20 23:46 Pulse 81 03/22/20 23:46 Resp 20 03/22/20 23:46 BP 164/92 H 03/22/20 23:46 Pulse Ox 96 03/22/20 23:46 - Orders/Labs/Meds Orders: Active Orders 24 hr Category Date Time Status CULTURE URINE [RM] Stat Lab 03/23/20 00:19 Received Labs: Laboratory Tests 03/22/20 Range/Units 23:55 Urine Color Yellow (YELLOW) Urine Appearance Cloudy A (CLEAR) Urine pH 6.5 (5.0-8.0) Ur Specific [place] 1.025 (1.008-1.030) Urine Protein >=300 H (NEGATIVE) mg/dL Urine Glucose (UA) Negative (NEGATIVE) mg/dL Urine Ketones Negative (NEGATIVE) mg/dL Urine Occult Blood Large H (NEGATIVE) Urine Nitrite Positive H (NEGATIVE) Urine Bilirubin Negative (NEGATIVE) Urine Urobilinogen 0.2 (0.2-1.0) EU/dL Ur Leukocyte Esterase Small H (NEGATIVE) Urine RBC >100 H (0-5) Urine WBC >100 H (0-5) Ur Epithelial Cells Few Amorphous Sediment Not seen Urine Bacteria Many Urine Mucus Not seen - Re-Assessments/Exams Free Text/Narrative Re-Assessment/Exam: 03/22/20 23:49 A bladder scan showed no significant bladder distention, and flushing the catheter was partially successful but despite being able to push fluid through the catheter into the bladder it seemed to escape around the catheter. Therefore the old catheter was removed and replaced with a new indwelling catheter and seem to be functioning fine. 03/23/20 00:16 Prior to discharge patient requested a UA as he feels better when his bacteriuria is treated. UA did show packed bacteria and WBCs with nitrite positive urine. He was on cephalexin 1 month ago and it worked well for him, this will be repeated and a urine culture ordered. Departure - Departure Time of Disposition: 00:46 Disposition: Home, Self-Care 01 Clinical Impression: Malfunction of indwelling urinary catheter Qualifiers: Encounter type: initial encounter Qualified Code(s): T83.011A - Breakdown (mechanical) of indwelling urethral catheter, initial encounter UTI (urinary tract infection) Qualifiers: Urinary tract infection type: acute cystitis Hematuria presence: without hematuria Qualified Code(s): N30.00 - Acute cystitis without hematuria - Discharge Information Instructions: Indwelling Urinary Catheter Care, Adult, Urinary Tract Infection, Adult, [id number] Referrals: Klarissa Yadav MD [Primary Care Provider] - Forms: ED Department Discharge Care Plan Goals: Continue your regular medications and catheter care as before and return if problems. Start antibiotic and take until gone, you will be informed of culture results if medication needs to be changed. Sepsis Event Note (ED) - Evaluation Sepsis Screening Result: No Definite Risk - Focused Exam Vital Signs: Vital Signs Temp Pulse Resp BP Pulse Ox 03/22/20 23:46 97.0 F 81 20 164/92 H 96 03/22/20 23:45 97.0 F 81 20 164/92 H 96 - My Orders Last 24 Hours: My Active Orders 03/23/20 00:19 CULTURE URINE [RM] Stat - Assessment/Plan Last 24 Hours: My Active Orders 03/23/20 00:19 CULTURE URINE [RM] Stat
== END 2020-03-23 00:46 | disposition home or self-care (01) ==
LOC: JP.ED 23:06
DX: T83.018A Breakdown (mechanical) of other urinary catheter, initial encounter (principal); N30.00 Acute cystitis without hematuria; I25.10 Atherosclerotic heart disease of native coronary artery without angina pectoris; E78.00 Pure hypercholesterolemia, unspecified; I11.0 Hypertensive heart disease with heart failure; I50.9 Heart failure, unspecified; E78.5 Hyperlipidemia, unspecified; I25.2 Old myocardial infarction; G62.9 Polyneuropathy, unspecified; Z79.82 Long term (current) use of aspirin; Z79.899 Other long term (current) drug therapy
CPT/HCPCS: 51702; 81001; 87086; 87088; 87186; 99283

== ENCOUNTER 2020-05-16 22:07 | Emergency (ER) | payer MEDICARE ==
--- NOTE | 2020-05-16 22:31 | EDM.PDOC ---
ED HPI GENERAL MEDICAL PROBLEM - General Chief Complaint: Genitourinary Problem Stated Complaint: [facility] Time Seen by Provider: 05/16/20 22:26 Source of Information: Reports: Patient, EMS, RN Notes Reviewed History Limitations: Reports: No Limitations - History of Present Illness INITIAL COMMENTS - FREE TEXT/NARRATIVE: 80-year-old gentleman presents emergency department today with complaint of blood in his urine, he has had a indwelling catheter for a little over a year states it has been working well functioning well however this tonight before going to bed he noticed there was bright red blood in his urine denies any trauma has not had any symptoms denies any fevers he is concerned about an infectious process. - Related Data Allergies Allergy/AdvReac Type Severity Reaction Status Date / Time No Known Allergies Allergy Verified 05/16/20 22:19 Home Meds: Home Meds Aspirin [Natalie Chewable Aspirin] 81 mg PO DAILY 12/12/13 [History] atorvaSTATin [Lipitor] 80 mg PO BEDTIME 08/19/14 [History] Acetaminophen [Tylenol Extra Strength] 1 tab PO QID PRN 12/20/15 [History] Nitroglycerin [IJP: Nitroglycerin] 1 tab SL ASDIRECTED PRN 12/20/15 [History] Polyethylene Glycol 3350 [MiraLAX] 1 dose PO DAILY 12/20/15 [History] Sennosides/Docusate Sodium [Senna-S] 1 tab PO BEDTIME 12/20/15 [History] Metoprolol Succinate [Toprol Xl] 25 mg PO DAILY 10/12/19 [History] Mirtazapine 15 mg PO BEDTIME 10/12/19 [History] Oxybutynin Chloride [Oxybutynin Chloride ER] 10 mg PO DAILY 10/12/19 [History] Past Medical History HEENT History: Reports: Cataract, Impaired Vision Cardiovascular History: Reports: CAD, Heart Failure, High Cholesterol, Hypertension, [place] Other Cardiovascular History: open heart surgery 7 years ago. Ischemic heart disease, hyperlipidemia Gastrointestinal History: Reports: Chronic Constipation Genitourinary History: Reports: Renal Calculus, Urinary Incontinence, Other (See Below) Other Genitourinary History: decreased urine stream, chronic urinary catheter Musculoskeletal History: Reports: Other (See Below) Other Musculoskeletal History: neuropathy Neurological History: Reports: Neuropathy, Peripheral Psychiatric History: Reports: Anxiety - Infectious Disease History Infectious Disease History: Reports: Chicken Pox - Past Surgical History HEENT Surgical History: Reports: Cataract Surgery, Tonsillectomy Cardiovascular Surgical History: Reports: Coronary Artery Bypass Other Cardiovascular Surgeries/Procedures: x 4 cabg Male Surgical History: Reports: Kidney Stone Extraction, Lithotripsy (ESWL), Renal Calculus Social & Family History - Family History Family Medical History: No Pertinent Family History - Tobacco Use Tobacco Use Status *Q: Never Tobacco User - Caffeine Use Caffeine Use: Reports: None ED ROS GENERAL - Review of Systems Review Of Systems: See Below Constitutional: Reports: No Symptoms HEENT: Reports: No Symptoms Respiratory: Reports: No Symptoms Cardiovascular: Reports: No Symptoms GI/Abdominal: Reports: No Symptoms : Reports: Hematuria ED EXAM, RENAL/ - Physical Exam Exam: See Below Exam Limited By: No Limitations General Appearance: Alert, WD/WN, No Apparent Distress Respiratory/Chest: No Respiratory Distress GI/Abdominal: Soft, Non-Tender Course - Vital Signs Last Recorded V/S: Last Vital Signs Temp 96.5 F L 05/16/20 22:19 Pulse 56 L 05/16/20 23:06 Resp 16 05/16/20 23:06 BP 136/76 05/16/20 23:06 Pulse Ox 93 L 05/16/20 23:06 - Orders/Labs/Meds Orders: Active Orders 24 hr Category Date Time Status CULTURE URINE [RM] Urgent Lab 05/17/20 00:11 Ordered Labs: Laboratory Tests 05/16/20 Range/Units 23:40 Urine Color Yellow (YELLOW) Urine Appearance Cloudy A (CLEAR) Urine pH 7.0 (5.0-8.0) Ur Specific [place] 1.020 (1.008-1.030) Urine Protein 30 H (NEGATIVE) mg/dL Urine Glucose (UA) Negative (NEGATIVE) mg/dL Urine Ketones Negative (NEGATIVE) mg/dL Urine Occult Blood Large H (NEGATIVE) Urine Nitrite Positive H (NEGATIVE) Urine Bilirubin Negative (NEGATIVE) Urine Urobilinogen 0.2 (0.2-1.0) EU/dL Ur Leukocyte Esterase Small H (NEGATIVE) Urine RBC 50-75 H (0-5) Urine WBC 10-20 H (0-5) Ur Epithelial Cells Few Amorphous Sediment Not seen Urine Bacteria Many Urine Mucus Not seen Departure - Departure Time of Disposition: 00:15 Disposition: Home, Self-Care 01 Condition: Fair Clinical Impression: UTI, Urinary tract infectious disease - Discharge Information Instructions: Indwelling Urinary Catheter Care, Adult, Urinary Tract Infection, Adult, [id number] Referrals: PCP,None [Primary Care Provider] - Forms: ED Department Discharge Additional Instructions: Take full course of antibiotics, please follow-up with your primary care in the next 5 to 7 days for reevaluation your culture results will be available by then call return to the emergency department with worsening of symptoms. Sepsis Event Note (ED) - Evaluation Sepsis Screening Result: No Definite Risk - Focused Exam Vital Signs: Vital Signs Temp Pulse Resp BP Pulse Ox 05/16/20 23:06 56 L 16 136/76 93 L 05/16/20 22:19 96.5 F L 61 20 166/71 H 96 05/16/20 22:18 96.5 F L 61 20 166/71 H 96 - My Orders Last 24 Hours: My Active Orders 05/17/20 00:11 CULTURE URINE [RM] Urgent - Assessment/Plan Last 24 Hours: My Active Orders 05/17/20 00:11 CULTURE URINE [RM] Urgent Plan: Assessment Acuity = acute Site and laterality = urinary tract infection complicating the patient with chronic catheterization Etiology = probable bacterial cause Manifestations = hematuria Location of injury = Home Lab values = both WBCs and RBCs consistent with pyuria and hematuria respectively, positive for nitrates cultures pending Plan Elected to treat empirically Bactrim DS 1 tab p.o. twice daily x10 days follow- up primary care 5 to 7 days for reevaluation This note was dictated using [employer] voice recognition software please call with any questions on syntax or grammar.
[2020-05-16 23:07] VITALS: BP 136/76; PULSE 56
== END 2020-05-17 00:32 | disposition home or self-care (01) ==
LOC: JP.ED 22:07
DX: N39.0 Urinary tract infection, site not specified (principal); R31.9 Hematuria, unspecified; I11.0 Hypertensive heart disease with heart failure; I50.9 Heart failure, unspecified; I25.10 Atherosclerotic heart disease of native coronary artery without angina pectoris; E78.00 Pure hypercholesterolemia, unspecified; I25.2 Old myocardial infarction; F41.9 Anxiety disorder, unspecified; Z90.49 Acquired absence of other specified parts of digestive tract; Z79.82 Long term (current) use of aspirin; Z79.899 Other long term (current) drug therapy
CPT/HCPCS: 81001; 87086; 87088; 87186; 99283; 99284

== ENCOUNTER 2020-10-30 18:23 | Emergency (ER) | payer MEDICARE ==
[2020-10-30 19:03] VITALS: BP 129/72; PULSE 64
[2020-10-30] MEDS ORDERED: Lidocaine 2% Jelly 10 ML Urojet MUCMEM ONE (19:08)
--- NOTE | 2020-10-30 19:11 | EDM.PDOC ---
ED HPI GENERAL MEDICAL PROBLEM - General Chief Complaint: Genitourinary Problem Stated Complaint: PLUGGED CATHETER Time Seen by Provider: 10/30/20 19:04 Source of Information: Reports: Patient History Limitations: Reports: No Limitations - History of Present Illness INITIAL COMMENTS - FREE TEXT/NARRATIVE: Félix is an 80-year-old male presenting to the ED for a plugged Medeiros catheter. The catheter was last replaced in the clinic 9 days ago. The catheter stopped functioning earlier today but the patient has been expressing urine from the penis around the catheter. Bedside bladder scan only shows 35 cc of urine in the bladder. The patient is experiencing urinary incontinence around the catheter at this time. Bladder Pain Score (Numeric/FACES): 4 - Related Data Allergies Allergy/AdvReac Type Severity Reaction Status Date / Time No Known Allergies Allergy Verified 10/30/20 18:51 Home Meds: Home Meds Aspirin [Natalie Chewable Aspirin] 81 mg PO DAILY 12/12/13 [History] atorvaSTATin [Lipitor] 80 mg PO BEDTIME 08/19/14 [History] Acetaminophen [Tylenol Extra Strength] 1 tab PO QID PRN 12/20/15 [History] Nitroglycerin [IJP: Nitroglycerin] 1 tab SL ASDIRECTED PRN 12/20/15 [History] Polyethylene Glycol 3350 [MiraLAX] 1 dose PO DAILY 12/20/15 [History] Sennosides/Docusate Sodium [Senna-S] 1 tab PO BEDTIME 12/20/15 [History] Metoprolol Succinate [Toprol Xl] 25 mg PO DAILY 10/12/19 [History] Mirtazapine 15 mg PO BEDTIME 10/12/19 [History] Oxybutynin Chloride [Oxybutynin Chloride ER] 10 mg PO DAILY 10/12/19 [History] cephALEXin [Cephalexin] 250 mg PO BID #13 capsule 10/30/20 [Rx] Past Medical History HEENT History: Reports: Cataract, Impaired Vision Cardiovascular History: Reports: CAD, Heart Failure, High Cholesterol, Hypertension, [place] Other Cardiovascular History: open heart surgery 7 years ago. Ischemic heart disease, hyperlipidemia Gastrointestinal History: Reports: Chronic Constipation Genitourinary History: Reports: Renal Calculus, Urinary Incontinence, Other (See Below) Other Genitourinary History: decreased urine stream, chronic urinary catheter Musculoskeletal History: Reports: Other (See Below) Other Musculoskeletal History: neuropathy Neurological History: Reports: Neuropathy, Peripheral Psychiatric History: Reports: Anxiety - Infectious Disease History Infectious Disease History: Reports: Chicken Pox - Past Surgical History HEENT Surgical History: Reports: Cataract Surgery, Tonsillectomy Cardiovascular Surgical History: Reports: Coronary Artery Bypass Other Cardiovascular Surgeries/Procedures: x 4 cabg Male Surgical History: Reports: Kidney Stone Extraction, Lithotripsy (ESWL), Renal Calculus Social & Family History - Family History Family Medical History: No Pertinent Family History - Tobacco Use Tobacco Use Status *Q: Former Tobacco User Years of Tobacco use: 40 Used Tobacco, but Quit: Yes Month/Year Tobacco Last Used: 35 years ago Second Hand Smoke Exposure: No - Caffeine Use Caffeine Use: Reports: Tea - Recreational Drug Use Recreational Drug Use: No ED ROS GENERAL - Review of Systems Review Of Systems: See Below : Reports: Incontinence, Other (Medeiros catheter is plugged and urine is draining from around the catheter via the urethra. Patient is incontinent of urine) ED EXAM, RENAL/ - Physical Exam Exam: See Below Exam Limited By: No Limitations General Appearance: Alert, No Apparent Distress (Male) Exam: Other (Urinary incontinence around the Medeiros catheter. There is no significant urine coming out from the catheter at this time. Irrigation of the catheter is been unsuccessful.) Course - Vital Signs Last Recorded V/S: Last Vital Signs Temp 36.6 C 10/30/20 19:02 Pulse 64 10/30/20 19:02 Resp 16 10/30/20 19:02 BP 129/72 10/30/20 19:02 Pulse Ox 96 10/30/20 19:02 - Orders/Labs/Meds Orders: Active Orders 24 hr Category Date Time Status Insert Urinary Catheter [OM.PC] Q24H Care 10/30/20 19:15 Ordered Urinary Catheter Assessment [RC] ASDIRECTED Care 10/30/20 19:08 Active Labs: Laboratory Tests 10/30/20 Range/Units 19:33 Urine Color Yellow (YELLOW) Urine Appearance Turbid A (CLEAR) Urine pH 6.5 (5.0-8.0) Ur Specific [place] >= 1.030 (1.008-1.030) Urine Protein 100 H (NEGATIVE) mg/dL Urine Glucose (UA) Negative (NEGATIVE) mg/dL Urine Ketones Negative (NEGATIVE) mg/dL Urine Occult Blood Large H (NEGATIVE) Urine Nitrite Positive H (NEGATIVE) Urine Bilirubin Negative (NEGATIVE) Urine Urobilinogen 0.2 (0.2-1.0) EU/dL Ur Leukocyte Esterase Small H (NEGATIVE) Urine RBC Packed H (0-5) Urine WBC Packed H (0-5) Ur Epithelial Cells Rare Amorphous Sediment Many Urine Bacteria Many Urine Mucus Few Meds: Medications Discontinued Medications Generic Name Dose Route Start Last Admin Trade Name Freq PRN Reason Stop Dose Admin Lidocaine HCl 10 ml 10/30/20 19:08 10/30/20 19:11 Lidocaine 2% Jelly 10 Ml Urojet MUCMEM 10/30/20 19:09 10 ml ONETIME ONE Administration - Re-Assessments/Exams Free Text/Narrative Re-Assessment/Exam: 10/30/20 19:11 Medeiros catheter has been replaced. A urinalysis was obtained showing john pyuria with packed WBCs and packed RBCs. The patient is leukocyte Estrace and nitrite positive consistent with a urinary tract infection. He is likely colonized and has an indwelling Medeiros so I would hold off on a culture but we will start him on cephalexin 250 mg twice daily for 7 days. 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 Departure - Departure Time of Disposition: 19:58 Disposition: Home, Self-Care 01 Clinical Impression: Encounter for Medeiros catheter replacement, UTI, Urinary tract infectious disease Urinary tract infection Qualifiers: Urinary tract infection type: site unspecified Hematuria presence: with hematuria Qualified Code(s): N39.0 - Urinary tract infection, site not specified; R31.9 - Hematuria, unspecified Obstructed Medeiros catheter Qualifiers: Encounter type: initial encounter Qualified Code(s): T83.091A - Other mechanical complication of indwelling urethral catheter, initial encounter - Discharge Information Instructions: Indwelling Urinary Catheter Care, Adult, Urinary Tract Infection, Adult, [id number] Referrals: Klarissa Yadav MD [Primary Care Provider] - Forms: ED Department Discharge Care Plan Goals: Your urinalysis shows that you likely have a significant urinary tract infection which may be contributing to the Medeiros dysfunction. We will put you on an antibiotic called cephalexin which you will take twice daily for the next 7 days. Please follow-up with your primary provider should you have any additional issues or return to the ED should they not be available. Sepsis Event Note (ED) - Evaluation Sepsis Screening Result: No Definite Risk - Focused Exam Vital Signs: Vital Signs Temp Pulse Resp BP Pulse Ox 10/30/20 19:02 36.6 C 64 16 129/72 96 - Problem List & Annotations (1) UTI (urinary tract infection) SNOMED Code(s): 09352266 Code(s): N39.0 - URINARY TRACT INFECTION, SITE NOT SPECIFIED Status: Acute Priority: Medium Current Visit: Yes Qualifiers: Urinary tract infection type: site unspecified Hematuria presence: with hematuria Qualified Code(s): N39.0 - Urinary tract infection, site not specified; R31.9 - Hematuria, unspecified (2) Encounter for Medeiros catheter replacement SNOMED Code(s): 869600446, 664264264 Code(s): Z46.6 - ENCOUNTER FOR FITTING AND ADJUSTMENT OF URINARY DEVICE Status: Acute Priority: Medium Current Visit: Yes - Problem List Review Problem List Initiated/Reviewed/Updated: Yes - My Orders Last 24 Hours: My Active Orders 10/30/20 19:08 Urinary Catheter Assessment [RC] ASDIRECTED 10/30/20 19:15 Insert Urinary Catheter [OM.PC] Q24H - Assessment/Plan Last 24 Hours: My Active Orders 10/30/20 19:08 Urinary Catheter Assessment [RC] ASDIRECTED 10/30/20 19:15 Insert Urinary Catheter [OM.PC] Q24H
[2020-10-30] MEDS ORDERED: Cephalexin 250 MG Cap PO ONE (19:58)
== END 2020-10-30 20:15 | disposition home or self-care (01) ==
LOC: JP.ED 18:23
DX: T83.091A Other mechanical complication of indwelling urethral catheter, initial encounter (principal); N39.0 Urinary tract infection, site not specified; R31.9 Hematuria, unspecified; I25.10 Atherosclerotic heart disease of native coronary artery without angina pectoris; E78.00 Pure hypercholesterolemia, unspecified; I11.0 Hypertensive heart disease with heart failure; I50.9 Heart failure, unspecified; I25.2 Old myocardial infarction; E78.5 Hyperlipidemia, unspecified; Z95.1 Presence of aortocoronary bypass graft; Z79.82 Long term (current) use of aspirin; Z79.899 Other long term (current) drug therapy
CPT/HCPCS: 51702; 81001; 99283; A9270

== ENCOUNTER 2021-01-01 15:45 | Emergency (ER) | payer MEDICARE ==
[2021-01-01] MEDS ORDERED: Ondansetron 4 MG/2 ML SDV IVPUSH ONE (16:15)
[2021-01-01] MEDS ORDERED: Lactated Ringers 1,000 ML IV ONE (16:15)
--- NOTE | 2021-01-01 16:18 | EDM.PDOC ---
ED HPI GENERAL MEDICAL PROBLEM - General Chief Complaint: Fever Stated Complaint: MEDICAL VIA [facility] Time Seen by Provider: 01/01/21 16:12 Source of Information: Reports: Patient, EMS, Family, RN Notes Reviewed History Limitations: Reports: No Limitations - History of Present Illness INITIAL COMMENTS - FREE TEXT/NARRATIVE: 80-year-old gentleman presents emergency department day complaint of nausea and vomiting, he arrives by EMS states he is the only 1 that is ill in the household denies any pain no shortness of breath no chest pain no abdominal pain states he had pretty significant vomiting around noon still feels nauseated he has had poor oral intake most of the day - Related Data Allergies Allergy/AdvReac Type Severity Reaction Status Date / Time No Known Allergies Allergy Verified 01/01/21 15:54 Home Meds: Home Meds Aspirin [Natalie Chewable Aspirin] 81 mg PO DAILY 12/12/13 [History] atorvaSTATin [Lipitor] 80 mg PO BEDTIME 08/19/14 [History] Acetaminophen [Tylenol Extra Strength] 1 tab PO QID PRN 12/20/15 [History] Nitroglycerin [IJP: Nitroglycerin] 1 tab SL ASDIRECTED PRN 12/20/15 [History] Polyethylene Glycol 3350 [MiraLAX] 1 dose PO DAILY 12/20/15 [History] Sennosides/Docusate Sodium [Senna-S] 1 tab PO BEDTIME 12/20/15 [History] Metoprolol Succinate [Toprol Xl] 25 mg PO DAILY 10/12/19 [History] Mirtazapine 15 mg PO BEDTIME 10/12/19 [History] Oxybutynin Chloride [Oxybutynin Chloride ER] 10 mg PO DAILY 10/12/19 [History] Past Medical History HEENT History: Reports: Cataract, Impaired Vision Cardiovascular History: Reports: CAD, Heart Failure, High Cholesterol, Hypertension, [place] Other Cardiovascular History: open heart surgery 7 years ago. Ischemic heart disease, hyperlipidemia Gastrointestinal History: Reports: Chronic Constipation Genitourinary History: Reports: Renal Calculus, Urinary Incontinence, Other (See Below) Other Genitourinary History: decreased urine stream, chronic urinary catheter Musculoskeletal History: Reports: Other (See Below) Other Musculoskeletal History: neuropathy Neurological History: Reports: Neuropathy, Peripheral Psychiatric History: Reports: Anxiety - Infectious Disease History Infectious Disease History: Reports: Chicken Pox - Past Surgical History HEENT Surgical History: Reports: Cataract Surgery, Tonsillectomy Cardiovascular Surgical History: Reports: Coronary Artery Bypass Other Cardiovascular Surgeries/Procedures: x 4 cabg Male Surgical History: Reports: Kidney Stone Extraction, Lithotripsy (ESWL), Renal Calculus Social & Family History - Family History Family Medical History: No Pertinent Family History - Tobacco Use Tobacco Use Status *Q: Former Tobacco User Used Tobacco, but Quit: Yes Month/Year Tobacco Last Used: 50 - Caffeine Use Caffeine Use: Reports: Tea ED ROS GENERAL - Review of Systems Review Of Systems: See Below Constitutional: Reports: No Symptoms Respiratory: Reports: No Symptoms Cardiovascular: Reports: No Symptoms GI/Abdominal: Reports: Nausea, Vomiting. Denies: Abdominal Pain : Reports: No Symptoms ED EXAM, GI/ABD - Physical Exam Exam: See Below Exam Limited By: No Limitations General Appearance: Alert, WD/WN, No Apparent Distress Respiratory/Chest: No Respiratory Distress, Lungs Clear, Normal Breath Sounds, No Accessory Muscle Use, Chest Non-Tender Cardiovascular: Regular Rate, Rhythm, No Murmur GI/Abdominal Exam: Soft, Non-Tender Course - Vital Signs Last Recorded V/S: Last Vital Signs Temp 98.1 F 01/01/21 15:59 Pulse 78 01/01/21 17:35 Resp 16 01/01/21 15:59 BP 119/61 01/01/21 17:35 Pulse Ox 92 L 01/01/21 16:29 - Orders/Labs/Meds Orders: Active Orders 24 hr Category Date Time Status Lactated Ringers [Ringers, Lactated] 1,000 ml Med 01/01/21 16:15 Active IV BOLUS Medication Orders Lactated Ringer's (Ringers, Lactated) 1,000 mls @ 500 mls/hr IV BOLUS ONE Stop: 01/01/21 18:14 Last Admin: 01/01/21 17:17 Dose: 500 mls/hr Documented by: REGINE Labs: Laboratory Tests 01/01/21 01/01/21 01/01/21 Range/Units 16:33 16:35 16:35 WBC 18.0 H (4.5-11.0) K/uL RBC 4.79 (4.30-5.90) M/uL Hgb 15.0 (12.0-15.0) g/dL Hct 45.1 (40.0-54.0) % MCV 94 (80-98) fL MCH 31 (27-31) pg MCHC 33 (32-36) % Plt Count 162 (150-400) K/uL Add Manual Diff Yes Neutrophils % (Manual) 81 H (36-66) % Band Neutrophils % 2 L (5-11) % Lymphocytes % (Manual) 7 L (24-44) % Monocytes % (Manual) 9 H (2-6) % Basophils % (Manual) 1 (0-1) % Sodium 139 L (140-148) mmol/L Potassium 4.3 (3.6-5.2) mmol/L Chloride 105 (100-108) mmol/L Carbon Dioxide 27 (21-32) mmol/L Anion Gap 11.3 (5.0-14.0) mmol/L BUN 20 H (7-18) mg/dL Creatinine 1.6 H (0.8-1.3) mg/dL Est Cr Clr Drug Dosing 35.03 mL/min Estimated GFR (MDRD) 42 L (>60) Glucose 117 H (74-106) mg/dL Lactic Acid (0.4-2.0) mmol/L Calcium 8.4 L (8.5-10.1) mg/dL Total Bilirubin 1.3 H (0.2-1.0) mg/dL AST 36 (15-37) U/L ALT 35 (12-78) U/L Alkaline Phosphatase 99 (46-116) U/L Troponin I (0.000-0.056) ng/mL Total Protein 6.7 (6.4-8.2) g/dL Albumin 2.9 L (3.4-5.0) g/dL Globulin 3.8 H (2.3-3.5) g/dL Albumin/Globulin Ratio 0.8 L (1.2-2.2) Procalcitonin 0.18 ng/mL 01/01/21 01/01/21 Range/Units 16:35 16:35 WBC (4.5-11.0) K/uL RBC (4.30-5.90) M/uL Hgb (12.0-15.0) g/dL Hct (40.0-54.0) % MCV (80-98) fL MCH (27-31) pg MCHC (32-36) % Plt Count (150-400) K/uL Add Manual Diff Neutrophils % (Manual) (36-66) % Band Neutrophils % (5-11) % Lymphocytes % (Manual) (24-44) % Monocytes % (Manual) (2-6) % Basophils % (Manual) (0-1) % Sodium (140-148) mmol/L Potassium (3.6-5.2) mmol/L Chloride (100-108) mmol/L Carbon Dioxide (21-32) mmol/L Anion Gap (5.0-14.0) mmol/L BUN (7-18) mg/dL Creatinine (0.8-1.3) mg/dL Est Cr Clr Drug Dosing mL/min Estimated GFR (MDRD) (>60) Glucose (74-106) mg/dL Lactic Acid 1.1 (0.4-2.0) mmol/L Calcium (8.5-10.1) mg/dL Total Bilirubin (0.2-1.0) mg/dL AST (15-37) U/L ALT (12-78) U/L Alkaline Phosphatase (46-116) U/L Troponin I < 0.017 (0.000-0.056) ng/mL Total Protein (6.4-8.2) g/dL Albumin (3.4-5.0) g/dL Globulin (2.3-3.5) g/dL Albumin/Globulin Ratio (1.2-2.2) Procalcitonin ng/mL Meds: Medications Generic Name Dose Route Start Last Admin Trade Name Freq PRN Reason Stop Dose Admin Lactated Ringer's 1,000 mls @ 500 mls/hr 01/01/21 16:15 01/01/21 17:17 Ringers, Lactated IV 01/01/21 18:14 500 mls/hr BOLUS ONE Administration Discontinued Medications Generic Name Dose Route Start Last Admin Trade Name Freq PRN Reason Stop Dose Admin Ondansetron HCl 4 mg 01/01/21 16:15 01/01/21 17:17 Ondansetron 4 Mg/2 Ml Sdv IVPUSH 01/01/21 16:16 4 mg ONETIME ONE Administration Departure - Departure Time of Disposition: 17:55 Disposition: Home, Self-Care 01 Condition: Fair Clinical Impression: Gastroenteritis - Discharge Information Referrals: PCP,None [Primary Care Provider] - Forms: ED Department Discharge Additional Instructions: Use the Zofran as needed for nausea vomiting symptoms, please followup with your primary care provider in 3-5 days if not better, please call return to the emergency department with worsening of symptoms. Sepsis Event Note (ED) - Evaluation Sepsis Screening Result: No Definite Risk - Focused Exam Vital Signs: Vital Signs Temp Pulse Resp BP Pulse Ox 01/01/21 17:35 78 119/61 01/01/21 16:29 81 107/51 L 92 L 01/01/21 15:59 98.1 F 84 16 126/51 L 92 L 01/01/21 15:53 98.0 F 84 16 126/51 L 92 L - My Orders Last 24 Hours: My Active Orders 01/01/21 16:15 Lactated Ringers [Ringers, Lactated] 1,000 ml IV BOLUS - Assessment/Plan Last 24 Hours: My Active Orders 01/01/21 16:15 Lactated Ringers [Ringers, Lactated] 1,000 ml IV BOLUS Plan: Assessment Acuity = acute Site and laterality = gastroenteritis Etiology = probably viral Manifestations = nausea vomiting Location of injury = Home Lab values = WBC elevated 18.0 consistent with acute phase response leukocytosis creatinine elevated 1.6 consistent with acute renal failure stage G3 B troponin was negative lactic acid within normal limits procalcitonin also within normal limits Plan He had good improvement with Zofran 1 L of fluids was able to tolerate food in the emergency department discharged home with Zofran 4 mg ODT 1 tab p.o. 3 times daily as needed total #5 follow-up primary care 3 to 5 days if not better This note was dictated using [employer] voice recognition software please call with any questions on syntax or grammar.
[2021-01-01 17:36] VITALS: BP 119/61; PULSE 78
== END 2021-01-01 18:34 | disposition home or self-care (01) ==
LOC: JP.ED 15:45
DX: K52.9 Noninfective gastroenteritis and colitis, unspecified (principal); I25.10 Atherosclerotic heart disease of native coronary artery without angina pectoris; I11.0 Hypertensive heart disease with heart failure; I50.9 Heart failure, unspecified; I25.2 Old myocardial infarction; E78.00 Pure hypercholesterolemia, unspecified; Z87.891 Personal history of nicotine dependence; Z79.82 Long term (current) use of aspirin; Z79.899 Other long term (current) drug therapy
CPT/HCPCS: 36415; 80053; 83605; 84145; 84484; 85025; 96374; 99284; J2405; J7120

== ENCOUNTER 2021-02-14 11:52 | Emergency (ER) | payer MEDICARE ==
--- NOTE | 2021-02-14 12:31 | EDM.PDOC ---
ED HPI GENERAL MEDICAL PROBLEM - General Chief Complaint: Cardiovascular Problem Stated Complaint: MEDICAL VIA NOTH Time Seen by Provider: 02/14/21 12:15 Source of Information: Reports: Patient, EMS, Family, Old Records History Limitations: Reports: No Limitations - History of Present Illness INITIAL COMMENTS - FREE TEXT/NARRATIVE: 80 yo male was sitting in his home with his just before arrival and she said he got ramirez and had a hard time moving any part of his body. His speech was transiently slurred. There was no pain or nausea. Apparently, when EMS arrived his BP was low, but it rebounded without any interventions. No sign of an allergic reaction. No SOB. No recent diarrhea or black/bloody stools. No hx of this same reaction in the past. Is fully back to normal per patient and his currently. Onset: Sudden Onset Date: 02/14/21 Duration: Minutes: (45-60 min duration total), Resolved Prior to Arrival Location: Reports: Generalized Quality: Reports: Other (no pain) Severity: Severe Improves with: Reports: Other (time) Worsens with: Reports: Other (unknown) Context: Reports: Other (See HPI) Associated Symptoms: Reports: Weakness (generalized), Other (pallor, speech not clear). 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 (see below) (none) - Related Data Allergies Allergy/AdvReac Type Severity Reaction Status Date / Time No Known Allergies Allergy Verified 02/14/21 12:26 Home Meds: Home Meds Aspirin [Natalie Chewable Aspirin] 81 mg PO DAILY 12/12/13 [History] atorvaSTATin [Lipitor] 80 mg PO BEDTIME 08/19/14 [History] Acetaminophen [Tylenol Extra Strength] 1 tab PO QID PRN 12/20/15 [History] Nitroglycerin [IJP: Nitroglycerin] 1 tab SL ASDIRECTED PRN 12/20/15 [History] Polyethylene Glycol 3350 [MiraLAX] 1 dose PO DAILY 12/20/15 [History] Metoprolol Succinate [Toprol Xl] 25 mg PO DAILY 10/12/19 [History] Mirtazapine 15 mg PO BEDTIME 10/12/19 [History] Oxybutynin Chloride [Oxybutynin Chloride ER] 10 mg PO DAILY 10/12/19 [History] Past Medical History HEENT History: Reports: Cataract, Impaired Vision Cardiovascular History: Reports: CAD, Heart Failure, High Cholesterol, Hypertension, [place] Other Cardiovascular History: open heart surgery 7 years ago. Ischemic heart disease, hyperlipidemia Gastrointestinal History: Reports: Chronic Constipation Genitourinary History: Reports: Renal Calculus, Urinary Incontinence, Other (See Below) Other Genitourinary History: decreased urine stream, chronic urinary catheter Musculoskeletal History: Reports: Other (See Below) Other Musculoskeletal History: neuropathy Neurological History: Reports: Neuropathy, Peripheral Psychiatric History: Reports: Anxiety - Infectious Disease History Infectious Disease History: Reports: Chicken Pox - Past Surgical History HEENT Surgical History: Reports: Cataract Surgery, Tonsillectomy Cardiovascular Surgical History: Reports: Coronary Artery Bypass Other Cardiovascular Surgeries/Procedures: x 4 cabg Male Surgical History: Reports: Kidney Stone Extraction, Lithotripsy (ESWL), Renal Calculus Social & Family History - Family History Family Medical History: No Pertinent Family History - Caffeine Use Caffeine Use: Reports: Tea ED ROS GENERAL - Review of Systems Review Of Systems: See Below Constitutional: Reports: Weakness (generalized) HEENT: Reports: No Symptoms Respiratory: Reports: No Symptoms Cardiovascular: Reports: Other (BP low) Endocrine: Reports: No Symptoms GI/Abdominal: Reports: No Symptoms : Reports: No Symptoms Musculoskeletal: Reports: No Symptoms Skin: Reports: Pallor (transiently) Neurological: Reports: Change in Speech (transient) Psychiatric: Reports: No Symptoms ED EXAM, GENERAL - Physical Exam Exam: See Below Exam Limited By: No Limitations General Appearance: Alert, WD/WN, No Apparent Distress Eye Exam: Bilateral Eye: EOMI, Normal Inspection Ears: Normal External Exam, Normal Canal, Hearing Grossly Normal, Normal TMs Ear Exam: Bilateral Ear: Auricle Normal, Canal Normal, TM normal Nose: Normal Inspection, No Blood Throat/Mouth: Normal Inspection, Normal Lips, Normal Oropharynx, Normal Voice, No Airway Compromise Head: Atraumatic, Normocephalic Neck: Normal Inspection Respiratory/Chest: No Respiratory Distress, Lungs Clear, Normal Breath Sounds, No Accessory Muscle Use Cardiovascular: Regular Rate, Rhythm, No Edema GI/Abdominal: Normal Bowel Sounds, Soft, Non-Tender, No Distention Back Exam: Normal Inspection Extremities: Normal Inspection, Normal Range of Motion, Non-Tender, No Pedal Edema Neurological: Alert, Oriented, CN II-XII Intact, Normal Cognition, No Motor/Sensory Deficits Psychiatric: Normal Affect, Normal Mood Skin Exam: Warm, Dry, Intact, Normal Color, No Rash #1 Interpretation EKG Date: 02/14/21 Time: 13:20 Rhythm: NSR Rate (Beats/Min): 53 [place]: Normal P-Wave: Present QRS: Normal ST-T: Normal QT: Normal Comparison: No Change Course - Vital Signs Text/Narrative:: Dr. Pichardo called @ 1539h Last Recorded V/S: Last Vital Signs Temp 36.3 C 02/14/21 12:33 Pulse 64 02/14/21 14:32 Resp 23 H 02/14/21 14:32 BP 151/85 H 02/14/21 14:32 Pulse Ox 98 02/14/21 14:32 Orthostatic Blood Pressure [ 147/84 Standing] Orthostatic Blood Pressure [ 169/79 Sitting] Orthostatic Blood Pressure [ 100/68 Supine] - Orders/Labs/Meds Orders: Active Orders 24 hr Category Date Time Status Cardiac Monitoring [RC] .As Directed Care 02/14/21 12:25 Active Medeiros Catheter Insertion [Insert Urinary Catheter] [OM. Care 02/14/21 14:00 Ordered PC] Q24H Orthostatic Vital Signs [RC] ASDIRECTED Care 02/14/21 12:25 Active Urinary Catheter Assessment [RC] ASDIRECTED Care 02/14/21 13:59 Active CULTURE URINE [RM] Stat Lab 02/14/21 15:05 Received EKG 12 Lead [EK] Routine Ther 02/14/21 13:08 Ordered Labs: Laboratory Tests 02/14/21 02/14/21 02/14/21 Range/Units 12:15 12:15 14:17 WBC 10.1 (4.5-11.0) K/uL RBC 4.74 (4.30-5.90) M/uL Hgb 14.6 (12.0-15.0) g/dL Hct 44.9 (40.0-54.0) % MCV 95 (80-98) fL MCH 31 (27-31) pg MCHC 33 (32-36) % Plt Count 168 (150-400) K/uL Sodium 138 L (140-148) mmol/L Potassium 4.1 (3.6-5.2) mmol/L Chloride 103 (100-108) mmol/L Carbon Dioxide 29 (21-32) mmol/L Anion Gap 10.1 (5.0-14.0) mmol/L BUN 15 (7-18) mg/dL Creatinine 1.4 H (0.8-1.3) mg/dL Est Cr Clr Drug Dosing 42.73 mL/min Estimated GFR (MDRD) 49 L (>60) Glucose 102 (74-106) mg/dL Calcium 8.5 (8.5-10.1) mg/dL Total Bilirubin 0.8 (0.2-1.0) mg/dL AST 47 H (15-37) U/L ALT 45 (12-78) U/L Alkaline Phosphatase 106 (46-116) U/L Troponin I 0.039 (0.000-0.056) ng/mL Total Protein 6.5 (6.4-8.2) g/dL Albumin 2.7 L (3.4-5.0) g/dL Globulin 3.8 H (2.3-3.5) g/dL Albumin/Globulin Ratio 0.7 L (1.2-2.2) Urine Color Yellow (YELLOW) Urine Appearance Cloudy A (CLEAR) Urine pH 6.5 (5.0-8.0) Ur Specific [place] 1.010 (1.008-1.030) Urine Protein Negative (NEGATIVE) mg/dL Urine Glucose (UA) Negative (NEGATIVE) mg/dL Urine Ketones Negative (NEGATIVE) mg/dL Urine Occult Blood Moderate H (NEGATIVE) Urine Nitrite Negative (NEGATIVE) Urine Bilirubin Negative (NEGATIVE) Urine Urobilinogen 0.2 (0.2-1.0) EU/dL Ur Leukocyte Esterase Large H (NEGATIVE) Urine RBC 5-10 H (0-5) Urine WBC 75-100 H (0-5) Ur Epithelial Cells Rare Amorphous Sediment Not seen Urine Bacteria Many Urine Mucus Not seen 02/14/21 Range/Units 15:02 WBC (4.5-11.0) K/uL RBC (4.30-5.90) M/uL Hgb (12.0-15.0) g/dL Hct (40.0-54.0) % MCV (80-98) fL MCH (27-31) pg MCHC (32-36) % Plt Count (150-400) K/uL Sodium (140-148) mmol/L Potassium (3.6-5.2) mmol/L Chloride (100-108) mmol/L Carbon Dioxide (21-32) mmol/L Anion Gap (5.0-14.0) mmol/L BUN (7-18) mg/dL Creatinine (0.8-1.3) mg/dL Est Cr Clr Drug Dosing mL/min Estimated GFR (MDRD) (>60) Glucose (74-106) mg/dL Calcium (8.5-10.1) mg/dL Total Bilirubin (0.2-1.0) mg/dL AST (15-37) U/L ALT (12-78) U/L Alkaline Phosphatase (46-116) U/L Troponin I 0.056 (0.000-0.056) ng/mL Total Protein (6.4-8.2) g/dL Albumin (3.4-5.0) g/dL Globulin (2.3-3.5) g/dL Albumin/Globulin Ratio (1.2-2.2) Urine Color (YELLOW) Urine Appearance (CLEAR) Urine pH (5.0-8.0) Ur Specific [place] (1.008-1.030) Urine Protein (NEGATIVE) mg/dL Urine Glucose (UA) (NEGATIVE) mg/dL Urine Ketones (NEGATIVE) mg/dL Urine Occult Blood (NEGATIVE) Urine Nitrite (NEGATIVE) Urine Bilirubin (NEGATIVE) Urine Urobilinogen (0.2-1.0) EU/dL Ur Leukocyte Esterase (NEGATIVE) Urine RBC (0-5) Urine WBC (0-5) Ur Epithelial Cells Amorphous Sediment Urine Bacteria Urine Mucus Meds: Medications Discontinued Medications Generic Name Dose Route Start Last Admin Trade Name Freq PRN Reason Stop Dose Admin Cephalexin 500 mg 02/14/21 15:04 02/14/21 15:09 Cephalexin 250 Mg Cap PO 02/14/21 15:05 500 mg ONETIME ONE Administration Departure - Departure Time of Disposition: 15:42 Disposition: Home, Self-Care 01 Condition: Fair Clinical Impression: Urinary catheter (Medeiros) change required UTI (urinary tract infection) Qualifiers: Urinary tract infection type: site unspecified Hematuria presence: with hematuria Qualified Code(s): N39.0 - Urinary tract infection, site not specified - Discharge Information *PRESCRIPTION DRUG MONITORING PROGRAM REVIEWED*: Not Applicable *COPY OF PRESCRIPTION DRUG MONITORING REPORT IN PATIENT POP: Not Applicable Referrals: PCP,None [Primary Care Provider] - Forms: ED Department Discharge Additional Instructions: Add cephalexin 500 mg every 8 hrs to your current meds. Recheck with your doctor in 3 days. Return if worse. Sepsis Event Note (ED) - Focused Exam Vital Signs: Vital Signs Temp Pulse Resp BP Pulse Ox 02/14/21 14:32 64 23 H 151/85 H 98 02/14/21 13:43 54 L 21 H 134/80 96 02/14/21 13:15 54 L 28 H 140/77 98 02/14/21 12:33 36.3 C 52 L 20 130/56 L 97 02/14/21 12:15 36.3 C 52 L 20 130/56 L 97 - My Orders Last 24 Hours: My Active Orders 02/14/21 12:25 Cardiac Monitoring [RC] .As Directed Orthostatic Vital Signs [RC] ASDIRECTED 02/14/21 13:08 EKG 12 Lead [EK] Routine 02/14/21 13:59 Urinary Catheter Assessment [RC] ASDIRECTED 02/14/21 14:00 Medeiros Catheter Insertion [Insert Urinary Catheter] [OM.PC] Q24H 02/14/21 15:05 CULTURE URINE [RM] Stat - Assessment/Plan Last 24 Hours: My Active Orders 02/14/21 12:25 Cardiac Monitoring [RC] .As Directed Orthostatic Vital Signs [RC] ASDIRECTED 02/14/21 13:08 EKG 12 Lead [EK] Routine 02/14/21 13:59 Urinary Catheter Assessment [RC] ASDIRECTED 02/14/21 14:00 Medeiros Catheter Insertion [Insert Urinary Catheter] [OM.PC] Q24H 02/14/21 15:05 CULTURE URINE [RM] Stat
[2021-02-14] MEDS ORDERED: Cephalexin 250 MG Cap PO ONE (15:04)
[2021-02-14 15:56] VITALS: BP 152/77; PULSE 55
== END 2021-02-14 16:09 | disposition home or self-care (01) ==
LOC: JP.ED 11:52
DX: T83.511A Infection and inflammatory reaction due to indwelling urethral catheter, initial encounter (principal); N39.0 Urinary tract infection, site not specified; I25.10 Atherosclerotic heart disease of native coronary artery without angina pectoris; E78.00 Pure hypercholesterolemia, unspecified; I11.0 Hypertensive heart disease with heart failure; I50.9 Heart failure, unspecified; I25.2 Old myocardial infarction; Z95.1 Presence of aortocoronary bypass graft; Z79.82 Long term (current) use of aspirin; Z79.899 Other long term (current) drug therapy
CPT/HCPCS: 36415; 51702; 80053; 81001; 84484; 85027; 87086; 87088; 87186; 93005; 99285; A9270

== ENCOUNTER 2021-03-27 08:24 | Emergency (ER) | payer MEDICARE | END 2021-03-27 09:27 | disposition left against medical advice (07) | LOC: JP.ED 08:24 | DX: Z53.21 Procedure and treatment not carried out due to patient leaving prior to being seen by health care provider (principal) ==

== ENCOUNTER 2021-12-10 20:55 | Emergency (ER) | payer MEDICARE ==
[2021-12-10 21:07] VITALS: BP 129/78; PULSE 58
== END 2021-12-10 23:39 | disposition home or self-care (01) ==
LOC: JP.ED 20:55
DX: T83.511A Infection and inflammatory reaction due to indwelling urethral catheter, initial encounter (principal); N39.0 Urinary tract infection, site not specified; R31.9 Hematuria, unspecified; I25.10 Atherosclerotic heart disease of native coronary artery without angina pectoris; I11.0 Hypertensive heart disease with heart failure; I50.9 Heart failure, unspecified; E78.00 Pure hypercholesterolemia, unspecified; I25.2 Old myocardial infarction; Z79.82 Long term (current) use of aspirin; Z79.899 Other long term (current) drug therapy
CPT/HCPCS: 51702; 81001; 87086; 87088; 87186; 99281; 99283-25

== ENCOUNTER 2021-12-26 17:38 | Emergency (ER) | payer MEDICARE ==
[2021-12-26 18:03] VITALS: BP 115/76; PULSE 53
== END 2021-12-26 19:10 | disposition home or self-care (01) ==
LOC: JP.ED 17:38
DX: T83.098A Other mechanical complication of other urinary catheter, initial encounter (principal); I11.0 Hypertensive heart disease with heart failure; I50.9 Heart failure, unspecified; I25.10 Atherosclerotic heart disease of native coronary artery without angina pectoris; Z79.899 Other long term (current) drug therapy; Z79.82 Long term (current) use of aspirin; Z88.6 Allergy status to analgesic agent
CPT/HCPCS: 51702; 99283-25

== ENCOUNTER 2021-12-27 15:52 | Emergency (ER) | payer MEDICARE ==
[2021-12-27 16:58] VITALS: BP 118/81; PULSE 89
[2021-12-27] MEDS ORDERED: Bacitracin Oint 28.35 GM Tube TOP SCH (17:41)
== END 2021-12-27 18:36 | disposition home or self-care (01) ==
LOC: JP.ED 15:52
DX: T83.511A Infection and inflammatory reaction due to indwelling urethral catheter, initial encounter (principal); N39.0 Urinary tract infection, site not specified; L30.3 Infective dermatitis; I25.10 Atherosclerotic heart disease of native coronary artery without angina pectoris; I11.0 Hypertensive heart disease with heart failure; I50.9 Heart failure, unspecified; I25.2 Old myocardial infarction; E78.00 Pure hypercholesterolemia, unspecified; Z79.82 Long term (current) use of aspirin; Z79.899 Other long term (current) drug therapy; Z87.891 Personal history of nicotine dependence
CPT/HCPCS: 74018; 81001; 99284; A9270

== ENCOUNTER 2021-12-28 15:42 | Inpatient (IN) | payer MEDICARE ==
[2021-12-28] MEDS ORDERED: Sodium Chloride 0.9% 1,000 ML IV SCH ×2 (17:30→20:30)
[2021-12-28] MEDS ORDERED: Ondansetron 4 MG/2 ML SDV IVPUSH ONE (17:31)
[2021-12-28 17:41] LABS: ESTIMATED GFR 40 mL/min (>60)
[2021-12-28] MEDS ORDERED: Ketorolac 30 MG/ML SDV IVPUSH ONE (19:20)
[2021-12-28] MEDS ORDERED: Magnesium Hydroxide 400 MG/5 ML Susp 30 ML Cup PO PRN (20:36)
[2021-12-28] MEDS ORDERED: Docusate Sodium 100 MG Cap PO PRN (20:36)
[2021-12-28] MEDS ORDERED: Ondansetron 4 MG/2 ML SDV IV PRN ×2 (20:36→20:54)
[2021-12-28] MEDS ORDERED: Acetaminophen 325 MG Tab PO PRN ×3 (20:36→21:06)
[2021-12-28] MEDS ORDERED: Nitroglycerin 0.4 MG Tab.SL SL PRN (21:06)
[2021-12-28] MEDS ORDERED: cefTRIAXone 1 GM in Sodium Chloride 0.9% 50 ML IV SCH (22:00)
[2021-12-28] MEDS: Aspirin 81 MG Tab.EC PO SCH (22:11)
[2021-12-28] MEDS: Polyethylene Glycol 3350 Powder 17 GM Packet PO PRN (22:12)
[2021-12-28] MEDS: Magnesium Hydroxide 400 MG/5 ML Susp 30 ML Cup PO PRN (22:12)
[2021-12-28] MEDS: Docusate Sodium 100 MG Cap PO PRN (22:12)
[2021-12-28] MEDS ORDERED: Lidocaine 2% Jelly 10 ML Urojet MUCMEM ONE (22:53)
[2021-12-29] MEDS: Docusate Sodium 100 MG Cap PO PRN (07:42)
[2021-12-29] MEDS: Magnesium Hydroxide 400 MG/5 ML Susp 30 ML Cup PO PRN (07:43)
[2021-12-29] MEDS: Polyethylene Glycol 3350 Powder 17 GM Packet PO PRN (07:43)
[2021-12-29] MEDS: Aspirin 81 MG Tab.EC PO SCH (09:08)
[2021-12-29] MEDS: Oxybutynin 5 MG Tab PO SCH ×2 (09:08→20:59)
[2021-12-29] MEDS: Calcium Carbonate/Vitamin D3 1500 MG-400 Units Tab PO SCH (09:08)
[2021-12-29] MEDS: Metoprolol Succinate 25 MG Tab.ER PO SCH (09:09)
[2021-12-29] MEDS: Ketoconazole 2% Crm 30 GM Tube TOP SCH ×2 (09:10→20:58)
[2021-12-29] MEDS: Docusate Sodium 100 MG Cap PO SCH (20:58)
[2021-12-29] MEDS ORDERED: atorvaSTATin 20 MG Tab PO SCH (21:00)
[2021-12-29] MEDS ORDERED: Mirtazapine 15 MG Tab PO SCH (21:00)
[2021-12-29] MEDS ORDERED: cefTRIAXone 1 GM Vial IM ONE (21:20)
[2021-12-29] MEDS ORDERED: Lidocaine 1% 5 ML VIAL INJECT ONE (21:25)
[2021-12-30] MEDS ORDERED: Polyethylene Glycol 3350 Powder 17 GM Packet PO SCH (09:00)
[2021-12-30] MEDS: Aspirin 81 MG Tab.EC PO SCH (09:28)
[2021-12-30] MEDS: Docusate Sodium 100 MG Cap PO SCH (09:28)
[2021-12-30] MEDS: Oxybutynin 5 MG Tab PO SCH (09:28)
[2021-12-30] MEDS: Metoprolol Succinate 25 MG Tab.ER PO SCH (09:28)
[2021-12-30] MEDS: Ketoconazole 2% Crm 30 GM Tube TOP SCH (09:28)
[2021-12-30] MEDS: Calcium Carbonate/Vitamin D3 1500 MG-400 Units Tab PO SCH (09:28)
[2021-12-30 09:33] VITALS: BP 91/56; PULSE 62
== END 2021-12-30 10:10 | disposition home health service (06) | DRG 699 ==
LOC: JP.ED 15:42 → JP.MS 20:30
PROVIDERS: ADMIT Internal Medicine; ATTEND Internal Medicine
DX: T83.021A Displacement of indwelling urethral catheter, initial encounter (principal); I13.0 Hypertensive heart and chronic kidney disease with heart failure and stage 1 through stage 4 chronic kidney disease, or unspecified chronic kidney disease; Z93.6 Other artificial openings of urinary tract status; N39.0 Urinary tract infection, site not specified; T83.511A Infection and inflammatory reaction due to indwelling urethral catheter, initial encounter; Y84.8 Other medical procedures as the cause of abnormal reaction of the patient, or of later complication, without mention of misadventure at the time of the procedure; N18.31 Chronic kidney disease, stage 3a; I11.0 Hypertensive heart disease with heart failure; M54.50 Low back pain, unspecified; G89.29 Other chronic pain; K59.09 Other constipation; E86.0 Dehydration; I71.4 Abdominal aortic aneurysm, without rupture; H54.7 Unspecified visual loss; I25.10 Atherosclerotic heart disease of native coronary artery without angina pectoris; I50.9 Heart failure, unspecified; E78.00 Pure hypercholesterolemia, unspecified; R32 Unspecified urinary incontinence; G62.9 Polyneuropathy, unspecified; F41.9 Anxiety disorder, unspecified; Z86.19 Personal history of other infectious and parasitic diseases; I25.2 Old myocardial infarction; Z79.82 Long term (current) use of aspirin; Z79.899 Other long term (current) drug therapy; Z87.440 Personal history of urinary (tract) infections; Z98.49 Cataract extraction status, unspecified eye; Z90.89 Acquired absence of other organs; Z95.1 Presence of aortocoronary bypass graft; Z87.891 Personal history of nicotine dependence; Z20.822 Contact with and (suspected) exposure to COVID-19
CPT/HCPCS: 36415; 71045 ×2; 80053; 81001; 83605; 83735; 85025; 86140; 87040 ×2; 87086; 96361; 96374; 99285; J2405; J7030; U0002; 51798; 74176; 80048; 97110-GP; 97162-GP; 97530-GP; 99284; A9270-GY; J0696